=== PATIENT | female | born 2005 | race Two or more races ===

== ENCOUNTER 2025-06-09 00:53 | Emergency (ER) | payer OTHER, SELFPAY ==
[2025-06-09 00:54] VITALS: BMI 24.3
[2025-06-09 01:17] VITALS: BP 122/79; PULSE 81; RESP 18; TEMP 37; O2SAT 98
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
== END 2025-06-09 02:35 | disposition home or self-care (01) ==
LOC: SERX 05:45
PROVIDERS: Emergency Provider Emergency Medicine; PCP Family Medicine
DX: T14.8XXA Other injury of unspecified body region, initial encounter (principal); S09.90XA Unspecified injury of head, initial encounter; V49.9XXA Car occupant (driver) (passenger) injured in unspecified traffic accident, initial encounter; Y92.410 Unspecified street and highway as the place of occurrence of the external cause
CPT/HCPCS: 70450; 72125; 99282